=== PATIENT | female | born 1980 | race Caucasian/White ===

== ENCOUNTER → 2018-03-13 | Outpatient (CLI) | payer BC, OTHER ==
[~2018-03-13] MED LIST: ANTI-DIARRHEA2 MG PO; NAPROSYN500 MG PO; NOHOMEMEDICATIONS; ZOFRAN ODT4 MG PO
== END ==
LOC: ULTRA 14:09
DX: N83.201 Unspecified ovarian cyst, right side (principal); G89.29 Other chronic pain

== ENCOUNTER 2018-06-24 23:39 | Inpatient (IN) | payer BC, OTHER ==
[~2018-06-24] VITALS: Ht 157.5 cm; Wt 51.7 kg
--- NOTE | ~2018-06-24 | H ---
[facility] [place] [address] HISTORY AND PHYSICAL Name: CLINT LEHMAN Room #: 417-I ADM IN M.R.#: [id number] Admission: 06/24/18 ������������������ Attend Phys: Jon Mojica MD Discharge: ������������������ Date of : 78 Report #: [id number] THIS REPORT FOR: //name// CC: FAM unknown Jon Mojica DATE OF SERVICE: 06/25/2018 ATTENDING PHYSICIAN: Jon Mojica M.D. PRIMARY CARE PHYSICIAN: None. CHIEF COMPLAINT: Abdominal pain, nausea, vomiting. HISTORY OF PRESENT ILLNESS: The patient is a 38-year-old female who presented to [facility] with abdominal pain and vomiting. She states that earlier in the day, she started vomiting and vomited constantly over the next few hours, at least 15 times. She then developed abdominal pain. She says it is diffuse and cramp-like. She feels that she got dehydrated because she did not drink much water the day before while at her son's field trip. She has had decreased urine output as well. She denies any fevers or chills. Denies any sick contacts. Denies eating any spoiled foods, denies seeing any blood in her stools or emesis. She did have 1 episode of loose stool earlier in the morning. She actually had similar episodes in the past that have been occurring over the last 10 years, about every 6 months. She states that she was with her daughter. She had hyperemesis gravidarum and feels that her GI tract has never been the same since. She has never had EGD or colonoscopy or seen a GI physician. She has been hospitalized multiple times at [facility] for dehydration related to these vomiting episodes. She says she usually turns around in about a day with IV fluids and antiemetics. When this episode started at home, she had tried taking her oral Zofran and omeprazole, but it did not help. She has been told in the past that these episodes are related to gastroesophageal reflux disease. She does smoke marijuana daily and she says it seems to help when she gets these episodes to help with nausea and abdominal pain. In the ER, at [facility], she was given Reglan, Zofran, Toradol, Levaquin, Flagyl, Protonix and potassium. She was sent here for further GI evaluation. She currently states that her abdominal pain has improved. She did have 1 episode of vomiting since arrival, but says her nausea has improved significantly. PAST MEDICAL HISTORY: Endometriosis, GERD, chronic back pain. PAST SURGICAL HISTORY: Bilateral tubal ligation. ALLERGIES: PERCOCET CAUSES NAUSEA AND TRAMADOL, HEADACHE AND STOMACHACHE. [facility] [address] [place] [address] HISTORY AND PHYSICAL Name: CLINT LEHMAN JOHN Room #: 417-I ADM IN M.R.#: [id number] Admission: 06/24/18 ������������������ Attend Phys: Jon Mojica MD Discharge: ������������������ Date of : 78 Report #: [id number] HOME MEDICATIONS: Naproxen 500 mg b.i.d. p.r.n., Zofran sublingual t.i.d. p.r.n., Depo-Provera and Fowler 5/325 p.r.n. SOCIAL HISTORY: The patient smokes 2-3 cigarettes per day, but had previously smoked up to a half a pack per day for 20 years. Denies any alcohol use. She does smoke marijuana daily. She lives at home with her spouse and children. FAMILY HISTORY: Her father has COPD. Her mother is alive with a history of breast cancer. She states both her sisters and her mother have required cholecystectomy. REVIEW OF SYSTEMS: The patient does have a history of endometriosis. She has been evaluated by Dr. Khan with gynecology previously and has been on Depo-Provera for it. She has actually been referred to a pelvic specialist for which she has an appointment in July to further evaluate. All other 12-point review of systems was reviewed with the patient, otherwise negative unless stated in the HPI. PHYSICAL EXAMINATION: GENERAL: The patient is an alert female in no acute distress. VITAL SIGNS: Temperature is 36.9, heart rate 72, respirations 20, blood pressure 120/59, and oxygen 98% on room air. HEENT: PERRLA. Sclerae are nonicteric. Oral mucosa is pink and dry. NECK: Supple, no JVD noted. CARDIOVASCULAR: Normal S1, S2. No murmurs, rubs or gallops. RESPIRATORY: Breath sounds are clear bilaterally. No wheezing or rhonchi. Breathing is nonlabored. ABDOMEN: Flat, soft and nondistended. She is slightly tender in the right upper quadrant. Bowel sounds are positive. VASCULAR: No edema noted. Pedal pulses are 2+. NEUROLOGIC: The patient is alert and oriented x 3. Speech is clear. She is moving all extremities equally. No focal neuro deficits noted. SKIN: Intact. No rashes or lesions. She does have multiple tattoos. LABORATORY DATA AND DIAGNOSTICS: Blood work at [facility] showed a WBC of 13, hemoglobin 16.6, and platelets 287. Sodium is 144, potassium 3.3, BUN 30, creatinine 1.2, glucose 131, and bilirubin is 1.4. LFTs are within normal limits. Lipase is 88. UA is negative, hCG is negative. Urine drug screen is positive for opiates and THC. CT of the abdomen showed mild fat stranding and small bowel loops of the lower abdomen, which may be enteritis. There is also a cystic structure measuring 3.6 cm abutting the left side of the uterus, probably cystic degeneration of the fibroid. ASSESSMENT AND PLAN: 1. Vomiting: The patient was transferred here for further evaluation by GI. She has never had any endoscopies. These episodes do seem to be on cyclic [facility] [address] [place] [address] HISTORY AND PHYSICAL Name: CLINT LEHMAN Room #: 417-I [facility].#: [id number] Admission: 06/24/18 ������������������ Attend Phys: Jon Mojica MD Discharge: ������������������ Date of : 78 Report #: [id number] basis. She also has daily marijuana use. This could be cannabis hyperemesis. CT of the abdomen from [facility] was reviewed and showed some possible small bowel enteritis for which she did receive some antibiotics. We will hold off on any further antibiotics after her abdominal pain has improved and she is not having any diarrhea. Continue supportive care with IV fluids and antiemetics. We will try clear liquids, and if tolerates advance diet per GI. 2. Hypokalemia. This has been replaced. We will repeat labs in the morning. 3. Chronic back pain. She does have chronic opiate use. She denies running out of her pain medication that could possibly be causing withdrawal. 4. Tobacco abuse. The patient has been advised to quit. She denies a need for nicotine patch. 5. Marijuana use. She does admit to daily use. She was made aware that this could be contributing to her recurrent cyclic vomiting episode. 6. Endometriosis. The patient has been followed by Dr. Khan with Gynecology and referred on to a pelvic specialist. She is already aware of the abnormal findings on CT and has had previous pelvic ultrasound to evaluate these findings are not likely causing any of her current abdominal pain. 7. Deep venous thrombosis prophylaxis, place sequential compression devices. We will continue to follow the patient closely throughout the hospitalization and make changes based on clinical status. ��������������������������������������������� ���������������������������������������� By: ��������������������������������������������� [id number] PRIMO Jiménez /markie
[2018-06-25 00:05] VITALS: BP 124/59
--- NOTE | 2018-06-25 03:38 | NUR ---
PT TRANSFERRED FROM [facility], ARRIVED ABOUT MIDNIGHT, ADMISSION AND ASSESSMENT COMPLETED, CONSENTS SIGNED. PT A&Ox4, UP AD YASMIN, C/O INTRACTABLE N/V AND ABD PAIN FOR THE LAST 24 HOURS. REPORTS USING E-CIG TO QUIT SMOKING AND DAILY MARIJUANA USE. CHRONIC BACK PAIN FROM A HERNIATED DISC. DENIES ANY NAUSEA OR ABD PAIN AT THIS TIME, BUT C/O BACK HURTING. SKIN INTACT BUT PT IS SUNBURNT ALL OVER. PER REPORT FROM [facility], PT RECEIVED 2L NS, 40 MG PROTONIX, 50 MEQ OF POTASSIUM, TORADOL, REGLAN AND ZOFRAN; RECEIVED ANOTHER LITER OF FLUIDS ON ROUTE WELL 750 MG OF LEVAQUIN AND 500 MG OF FLAGYL. NO OTHER CONCERNS, WILL CONTINUE TO MONITOR.
[2018-06-25 04:30] VITALS: BP 152/62
[2018-06-25 05:30] VITALS: BP 114/49
[2018-06-25 06:14] LABS: HEMATOCRIT 37.2 % (37.0-47.0); HEMOGLOBIN 12.7 gm/dL (12.0-15.0); MCH 31.7 pg (26.0-34.0); MCHC 34.1 g/dL (28.0-37.0); RDW 13.4 % (10.5-14.5); WBC 10.2 thou/uL (4.0-11.0)
[2018-06-25 06:28] LABS: CALCIUM 7.5 mg/dL (8.5-10.1); CREATININE 0.8 mg/dL (0.6-1.0); MAGNESIUM 1.8 mg/dL (1.8-2.4); POTASSIUM 3.3 mmol/L (3.5-5.1)
[2018-06-25 08:27] VITALS: BP 98/53
[2018-06-25 16:06] VITALS: BP 98/53
[2018-06-26] MEDS ORDERED: WORK EXCUSE (11:25)
== END 2018-06-25 16:23 | disposition home or self-care (01) | DRG 392 ==
LOC: 4N 23:39 → 4E 23:55
PROVIDERS: Nurse Practitioner Acute Care; ADMIT Internal Medicine
DX: K31.89 Other diseases of stomach and duodenum (principal); K21.9 Gastro-esophageal reflux disease without esophagitis; R11.2 Nausea with vomiting, unspecified; E87.6 Hypokalemia; M54.9 Dorsalgia, unspecified; G89.29 Other chronic pain; F12.90 Cannabis use, unspecified, uncomplicated; N80.9 Endometriosis, unspecified; F17.210 Nicotine dependence, cigarettes, uncomplicated; Z71.6 Tobacco abuse counseling; Z79.899 Other long term (current) drug therapy; Z88.8 Allergy status to other drugs, medicaments and biological substances; Z82.5 Family history of asthma and other chronic lower respiratory diseases; Z80.3 Family history of malignant neoplasm of breast
CPT/HCPCS: 10783